=== PATIENT | male | born 1960 | race African-American/Black ===

== ENCOUNTER 2019-06-13 19:33 | Inpatient (IN) ==
[2019-06-13] MEDS ORDERED: ZOFRAN IV PRN (21:42)
[2019-06-13] MEDS ORDERED: MORPHINE IV PRN (21:48)
--- NOTE | 2019-06-13 23:02 | HISTORY AND PHYSICAL ---
CHIEF COMPLAINT: Abdominal pain. HISTORY OF PRESENT ILLNESS: Mr. Hassan is a very pleasant, 58-year-old - [place] male who comes to us from [facility]. He started having abdominal pain today. He did have some nausea and vomiting, so he went to the Emergency Room. A chest x-ray confirmed a small bowel obstruction. The patient really has no medical history to speak of. He does not take any home medications. He was sent over here for evaluation for possible surgical consultation. At this time, he will be admitted to the medical floor with conservative management. PAST MEDICAL HISTORY: None to note. PREVIOUS SURGICAL HISTORY: Appendectomy, hernia repair. SOCIAL HISTORY: Lives with family. No tobacco, alcohol or illicit drug use. ALLERGIES: No known drug allergies. FAMILY HISTORY: He has a strong history of cancer in first-degree relatives. He is unsure which type. He did know that one of his siblings had lung cancer. Also, coronary artery disease is in I believe one brother. HOME MEDICATIONS: Denies. REVIEW OF SYSTEMS: A 14-point review of systems was conducted with the patient. He is positive for abdominal pain, nausea, vomiting. Denies fever or chills. He did have some diarrhea. Denies hematochezia or melena. No bladder complaints. Other pertinent positives are listed above in the history of present illness. All other systems are reviewed and found to be negative. PHYSICAL EXAMINATION: VITAL SIGNS: Will update. None are in the computer at this time. GENERAL: A pleasant, 58-year-old, -[place] male lying in the medical floor bed. Alert and oriented x 3. Answers all questions appropriately. HEENT: Head is atraumatic, normocephalic. Pupils equal, round and reactive to light. Extraocular movements intact. Sclerae are anicteric. Conjunctiva is pink. Oral mucosa is dry. NECK: Supple. No JVD. No thyromegaly. Trachea is midline. No cervical lymphadenopathy. CARDIAC: S1, S2 appreciated. No murmurs, rubs or gallops. LUNGS: Clear to auscultation bilaterally. No rales, rhonchi or wheezes. Symmetrical rise and fall with respirations. ABDOMEN: Protuberant. Soft, slightly distended. Diffuse tender. Bowel sounds decreased in all 4 quadrants. No pulsatile mass or organomegaly. EXTREMITIES: No clubbing, cyanosis or edema. 2+ pedal pulses bilaterally. GENITOURINARY: No bladder symptoms. Patient voids. Otherwise deferred. NEUROLOGICAL: Alert and oriented x 3. No focal motor deficits. Otherwise nonfocal examination. DIAGNOSTIC DATA: Chest x-ray done at [facility] showed a small bowel obstruction. Then a CT was obtained, which showed an acute partial large bowel obstruction. Laboratory data includes WBC 10, hemoglobin 15.3, hematocrit 46.5, platelet count 317. Sodium 140, potassium 3.8, chloride 98, carbon dioxide 30, BUN 14, creatinine 0.8, glucose 114. ASSESSMENT AND PLAN: 1. Acute large, partial large bowel obstruction. Plan: We will use conservative management. Normal saline IV. Patient to be NPO. Morphine as needed for pain. Zofran as needed for nausea. Patient has not had profuse vomiting. I did make him aware that there was a possibility that we may have to place an NG tube to decompress his stomach. He deferred wanting to do that at this time. We will continue to treat conservatively. 2. Hyperglycemia. The patient does not carry a diagnosis of diabetes mellitus. We will check a hemoglobin A1C. 3. Fluid volume depletion. This is mild. As noted, we will give normal saline by IV. 4. Abdominal pain with nausea and vomiting secondary to #1. As noted above, we will give him morphine and Zofran. Further recommendations based on patient's clinical course. Dictated by JG Tse for Constanza Roberson MD cc: JG Tse MD Independent exam was only notable for mild diffuse tenderness without peritonism and decreased BS. Ordered SBFT to confirm and track for possible partial SBO vs ileus. [facility]
[2019-06-14] MEDS: NS 1,000 ML IV SCH ×3 (00:26→18:36)
[2019-06-14 07:32] LABS: BASO# 0.01 X1000 (0.0-0.2); BASO% 0.1 % (0.0-0.8); EOS# 0.09 X1000 (0.0-0.7); EOS% 1.3 % (0.0-10.0); HEMATOCRIT 41.3 % (42.0-52.0); HEMOGLOBIN 13.2 g/dL (14.0-18.0); IMM GRAN# 0.02 X1000 (0.0-0.04); IMM GRAN% 0.3 % (0.0-0.5); LYMPH# 2.09 X1000 (1.2-3.4); LYMPH% 29.7 % (20.5-51.1); MCH 25.1 PG (27-31); MCV 78.5 FL (81-99); MONO# 0.68 X1000 (0.11-0.59); MONO% 9.7 % (1.7-9.3); MPV 9.6 FL (7.4-10.4); NEUT# 4.15 X1000 (1.4-6.5); NEUT% 58.9 % (42.2-75.2); PLT 313 X1000 (130-400); RBC 5.26 XMIL (4.7-6.1); RDW 13.8 % (11.5-14.5); WBC 7.04 X1000 (4.8-10.8)
[2019-06-14 07:59] LABS: AGAP 8; BUN 14 mg/dL (8-22); CALCIUM 8.7 mg/dL (8.8-10.2); CHLORIDE 105 mmol/L (98-107); COSMO 281; CREATININE 0.7 mg/dL (0.7-1.2); ESTIMATED GFR > 60; GLUCOSE 92 mg/dL (70-104); POTASSIUM 3.8 mmol/L (3.5-5.1); SODIUM 141 mmol/L (136-145); TCO2 28 mmol/L (25-35)
--- NOTE | 2019-06-14 14:58 | Diag Imaging Result Doc PS360 ---
EXAM: SMALL BOWEL SERIES ONLY INDICATION: ileus, SBO? TECHNIQUE: Oral barium contrast was administered and incremental radiographs were performed until barium reached the colon. COMPARISON: None. FINDINGS: There are a few very slightly prominent loops of small bowel in the left lower quadrant with slight mucosal fold thickening. However, barium passes readily through these loops. No small bowel stricture or filling defect is identified, otherwise. Barium reached the colon between one hour 45 minutes and two hours 15 minutes after administration. IMPRESSION: Slightly prominent loops of small bowel with potential mild mucosal fold thickening in the left lower quadrant. However, the propagation of barium was normal with no strictures or high-grade obstruction identified. Electronically signed by Zach Marshall 06/14/2019 2:56 PM
--- NOTE | 2019-06-14 18:13 | PROGRESS NOTE ---
DATE: 06/14/2019 SUBJECTIVE: This patient states that he is feeling better. His abdomen is still distended, but he does have some mild bowel sounds. No signs of peritoneal irritation. He has past surgical history of umbilical hernia repair and appendectomy. As per the patient he has been passing gas. We did a small bowel series. Pending results for right now. Probably he can be placed on a liquid diet. He does not have an NG tube and suction. OBJECTIVE: Vital signs: Temperature 98.4 degrees, pulse 66, respiratory rate 20, blood pressure 116/65, oxygen saturation 97% on room air. HEENT: Head normocephalic. No trauma. PERRLA. Neck: Supple. No JVD. No masses. Central trachea. Chest: Clear to auscultation. No wheezing. No rales. Cardiovascular: RRR. Abdomen: Protuberant, slightly distended, is nontender to palpation. Bowel sounds decreased. No organomegaly. He does have a couple wounds in the infraumbilical area and also right lower quadrant from previous surgical procedures, appendectomy. Extremities: No edema. No clubbing. No cyanosis. Neurological: The patient is alert. He is oriented x3. No focal neurological deficits. LABORATORY: WBC 7, hemoglobin 13.2, hematocrit 41.3, platelets 313,000. Sodium 141, potassium 3.8, chloride 105, bicarbonate 28, BUN 14, creatinine 0.7, glucose 92, calcium 8.7. ASSESSMENT AND PLAN: 1. Small bowel obstruction. This patient apparently has been passing gas now. No bowel movement so far. He has been placed NPO. Surgery Department has been consulted. No nausea, no vomiting. We did a small bowel series. Pending results. 2. Hyperglycemia. We checked hemoglobin A1c and reading was 6. He does have probably pre diabetes. 3. Dehydration, better. Continue IV fluids. 4. Nausea and vomiting secondary to small bowel obstruction. cc: Moses Grullon MD
[2019-06-15] MEDS: NS 1,000 ML IV SCH ×2 (06:32→08:42)
[2019-06-15 08:02] LABS: AGAP 8; BUN 10 mg/dL (8-22); CALCIUM 8.9 mg/dL (8.8-10.2); CHLORIDE 105 mmol/L (98-107); COSMO 281; CREATININE 0.6 mg/dL (0.7-1.2); ESTIMATED GFR > 60; GLUCOSE 83 mg/dL (70-104); SODIUM 142 mmol/L (136-145); TCO2 29 mmol/L (25-35)
--- NOTE | 2019-06-15 08:15 | CONSULTATION ---
DATE OF CONSULTATION: 06/14/2019 HISTORY OF PRESENT ILLNESS: Mr. Andrew Adams is a 58-year-old black male who was transferred from [facility] yesterday and was hospitalized by our Hospitalists for possible small bowel obstruction. We were asked to evaluate him. Earlier today, he underwent a small-bowel follow-through which showed the barium and went all the way through the small bowel into the colon. Clinically he states that he feels better today. PAST MEDICAL HISTORY: None. PAST SURGICAL HISTORY: Hernia repair and appendectomy. SOCIAL HISTORY: He does not smoke. He has a girlfriend. ALLERGIES: No known drug allergies. FAMILY HISTORY: He does have cancer in his family, he is unsure of what type, also coronary artery disease. HOME MEDICATIONS: None. REVIEW OF SYSTEMS: A 14-point review of systems was performed and was essentially negative except for the history of present illness. PHYSICAL EXAMINATION: Vital signs: He weighs 162 pounds, he is 5 feet 7 inches. His heart rate 64, blood pressure 127/76, O2 saturation 100%. He is afebrile. General: Mr. Mo bah is an overweight, middle aged, black male in no acute distress. He has no NG tube. He is lying there comfortably. He is awake, cooperative no focal deficits. No jaundice. HEENT: No oral lesions. Satisfactory dentition. Neck: No cervical or supraclavicular lymphadenopathy. Heart: Has regular rate. Lungs: Are clear to auscultation and percussion bilaterally. Abdomen: Is somewhat protuberant but is not tightly distended. There is no tenderness. No evidence of hernia. No costovertebral tenderness. Rectal exam: Was not performed. Extremities: He does have palpable peripheral pulses. No peripheral edema. Neurologically: He is alert and oriented x3. LABORATORY DATA: His white blood cell count is normal. Electrolytes are within normal limits. Small-bowel follow-through showed barium going into the colon. He states that he has had flatus and had a bowel movement since admission. PLAN: I agree with increasing his diet and discharging him home as we know that he tolerates his diet. That probably can be as early as tomorrow. cc: Jesusita Heart MD
[2019-06-15 13:34] VITALS: BP 134/86
--- NOTE | 2019-06-16 09:17 | DISCHARGE SUMMARY ---
ADMISSION DATE: 06/13/2019 DISCHARGE DATE: 06/15/2019 DIAGNOSES: 1. Small bowel obstruction, resolved. 2. Hyperglycemia. 3. Dehydration, resolved. 4. Nausea and vomiting, resolved. CONSULTANTS: Dr. Jameel Heart. DIAGNOSTICS: Small-bowel series revealed slightly prominent loops of small bowel with potential mild mucosal fold thickening in the left lower quadrant. However, the propagation of barium was normal with no strictures or high-grade obstruction identified. HOSPITAL COURSE: Mr. Hassan presented to the emergency room complaining of abdominal pain. It was felt that he had a partial bowel obstruction for which he received IV hydration. He was initially held n.p.o. He was given morphine and Zofran for pain and nausea. Small bowel series showed barium going through the colon, he was passing gas, and had 3 bowel movements after admission. He tolerated a diet without any abdominal pain, nausea or vomiting. He was evaluated by Dr. Heart in General Surgery. Thankfully he is ready for discharge. DISCHARGE VITAL SIGNS: Blood pressure is 125/70 with a heart rate of 60, respirations 20, temperature is 98.5 degrees oral with room air saturations 99%. DISCHARGE PHYSICAL EXAMINATION: Cardiovascular: Regular rate and rhythm. S1 and S2 appreciated. Calves are nontender bilateral with peripheral pulses palpable x4 extremities. Pulmonary: Breath sounds are clear with no increased work of breathing noted. Chest rises and falls symmetric with respiration. Chest wall is nontender to palpation. Gastrointestinal: Abdomen is protuberant. It is soft. It is nontender with bowel sounds in all 4 quadrants. Neurologic: He is alert and oriented x3. Skin: Skin is warm and dry. DISCHARGE DIAGNOSTICS: On 06/14/2019, small bowel series revealed slightly prominent loops of small bowel with potential mild mucosal fold thickening in the left lower quadrant. However, the propagation of barium was normal with no stricture or high-grade obstruction identified. Barium reached the colon between 1 hour 45 minutes and 2 hours and 15 minutes. DISCHARGE MEDICATIONS: 1. MiraLAX 17 g p.o. daily. 2. Naprosyn 500 mg p.o. b.i.d. p.r.n. pain. 3. Pepcid 20 mg p.o. daily. 4. Flexeril 10 mg p.o. t.i.d. as directed. FOLLOW-UP: Dr. Winchester 06/27/2019 at 2:15 p.m. DISCHARGE INSTRUCTIONS: Has been instructed to call to be seen sooner or return to the emergency room for any syncope, dizziness, chest pain, palpitations, temperature greater than 101, any nausea, vomiting, diarrhea, constipation, black or bloody vomitus or stools, any hematuria, dysuria, frequency, urgency or for any questions or concerns that he may have. He is being discharged home in stable condition with family members. TIME SPENT: This is a greater than 30 minute discharge. Dictated by JG Kuo for Moses Grullon MD cc: JG Kuo MD
== END 2019-06-15 13:37 | disposition home or self-care (01) | DRG 390 ==
LOC: SUATTDRO 19:33 → 3N 19:33
PROVIDERS: ATTEND Internal Medicine